=== PATIENT | male | born 2000 | race Caucasian/White ===

== ENCOUNTER 2024-10-20 20:13 | Emergency (ER) | payer SELFPAY ==
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
[2024-10-20 20:26] VITALS: BP 115/81; PULSE 63; RESP 16; TEMP 36.6; O2SAT 99
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
[2024-10-20] MEDS: TETANUS,DIPHTHERIA,AC PERTUSSIS ADULT (0.5 ML) BOOSTRIX IM (22:40)
[2024-10-20] MEDS: LIDO 1%/EPINEPHRINE 1:100,000 20 ML VIAL 10 ML INFILTRATE (23:36)
[2024-10-20] MEDS: SULFAMETHOXAZOLE/TRIMETHOPRIM 800/160 MG DS TABLET 1 TAB PO (23:39)
[2024-10-20 23:41] VITALS: BP 118/78; PULSE 68; RESP 18; O2SAT 99
== END 2024-10-20 23:42 | disposition home or self-care (01) ==
PROVIDERS: Emergency Provider Physician Assistant
DX: L02.414 Cutaneous abscess of left upper limb (principal); Z23 Encounter for immunization
CPT/HCPCS: 10060; 73060; 90471; 90715; 99283; A9270; J2004